=== PATIENT | female | born 1935 | race Caucasian/White ===

== ENCOUNTER → 2018-02-28 14:23 | Outpatient (CLI) | payer MEDICARE, SELFPAY ==
--- NOTE | 2018-02-28 14:25 | RAD_ITS ---
STUDY: X-RAY - LEFT SHOULDER REASON FOR EXAM: Chronic pain. TECHNIQUE: 3 view(s) of the shoulder. COMPARISON: None. FINDINGS: Normal glenohumeral articulation. Normal acromioclavicular joint. Normal acromion. Normal humeral head and visualized proximal humerus. The soft tissue structures are unremarkable. There is a hiatal hernia. RAD/Shoulder min 2 Views IMPRESSION: Unremarkable x-ray examination of the left shoulder. Electronically Signed: Jrodin Burk MD at 14:22 EDT Tel , Service support ,
== END ==
PROVIDERS: Family Provider Internal Medicine; PCP Internal Medicine; Referring Provider Orthopaedic Surgery; Visit Provider Orthopaedic Surgery
DX: M25.512 Pain in left shoulder (principal)
CPT/HCPCS: 73030

== ENCOUNTER → 2019-01-06 17:06 | Outpatient (CLI) | payer MEDICARE, SELFPAY ==
[2019-01-06 17:13] LABS: Bacteria 0 SEEN /hpf (None Seen); Mucous, Urine 0 SEEN /hpf (<or=2+); Red Blood Cells-Urine 0 SEEN /hpf (0-5)
[2019-01-06 18:12] LABS: AST(SGOT) 22 U/L (15-37); Alanine Aminotransfer ALT/SGPT 30 U/L (13-56); Albumin, Serum 3.5 g/dL (3.2-5.0); Alkaline Phosphatase 66 U/L (45-117); Anion Gap 8 (5-15); BUN 17 mg/dL (7-18); BUN/Creat Ratio 17.7 RATIO (10-20); Calcium,Total 9.1 mg/dL (8.5-10.1); Chloride 104 mmol/L (98-107); Creatinine, Serum 0.96 mg/dL (0.55-1.02); EST Glomerular Filtration Rate 59 mL/min (>60); Est Glom Filt Rate - Afr Amer 71 mL/min (>60); Globulin 3.4 g/dL (2.2-4.2); Glucose 86 mg/dL (74-106); Potassium 3.9 mmol/L (3.5-5.1); Protein, Total 6.9 g/dL (6.4-8.2); Sodium Level 137 mmol/L (136-145)
[2019-01-06 18:13] LABS: Color, Urine Yellow (Yellow); Glucose, Dipstick Normal (Normal); Ketone-Dipstick Negative (Negative); Leukocyte Esterase-Dipstick 100 /ul (Negative); Nitrite-Dipstick Negative (Negative); Occult Blood-Urine Negative /ul (Negative); Protein-Dipstick Negative (Negative); Urine Bilirubin Dipstick Negative (Negative); Urine Clarity Clear (Clear); Urine Urobilinogen Normal (Normal)
[2019-01-06 18:15] LABS: Squamous Epithelial Cells - UA 0-5 SEEN /hpf (5-10); White Blood Cells 5-10 SEEN /hpf (0-5)
== END ==
PROVIDERS: Family Provider Internal Medicine; PCP Internal Medicine; Referring Provider Internal Medicine; Visit Provider Internal Medicine
DX: I10 Essential (primary) hypertension (principal); E78.5 Hyperlipidemia, unspecified; R35.0 Frequency of micturition
CPT/HCPCS: 36415; 80053; 81001

== ENCOUNTER → 2019-02-10 15:06 | Outpatient (CLI) | payer MEDICARE, SELFPAY ==
[2019-02-10 11:03] VITALS: BMI 30.2
--- NOTE | 2019-02-10 15:20 | RAD_ITS ---
STUDY: X-RAY CHEST REASON FOR EXAM: Female, 83 years old. Shortness of breath. TECHNIQUE: AP portable chest. COMPARISON: May 16, 2016. FINDINGS: The lungs are clear and expanded. There is no demonstrated pleural abnormality. Large hiatal hernia. Normal size heart. Normal mediastinum and mendel. Normal visualized pulmonary arteries. Normal visualized aortic arch and descending thoracic aorta. Normal visualized thoracic spine. Normal visualized ribs, clavicles, and shoulders. Sternal wires are present. There is no demonstrated abnormality of the visualized soft tissue structures of the upper abdomen. RAD/Chest PA and Lateral IMPRESSION: No acute cardiopulmonary disease. Large hiatal hernia. Electronically Signed: Shahid Major MD at 0:17 EDT , Service support ,
[2019-02-10 16:38] LABS: Absolute Lymphocyte Count 1.63 X10^3/uL (0.83-4.51); Absolute Neutrophil Count 3.7 X10^3/uL (2.0-7.7); Basophil# 0.03 X10^3/uL; Basophil% 0.5 % (0-1); Eosinophil# 0.28 X10^3/uL; Eosinophils% 4.3 % (0-5); Hematocrit 37.6 % (37-47); Hemoglobin 12.1 g/dL (12.0-15.0); Lymphocyte # 1.63 X10^3/ul (4.0); Lymphocyte % 25.2 % (19-41); Mean Corp Hgb Conc 32.2 g/dL (32-36); Mean Corpuscular Hgb 31.7 pg (27.0-32.0); Mean Corpuscular Volume 98.4 fL (81-99); Mean Platelet Vol. 9.8 fl (6.2-12.0); Monocyte# 0.78 X10^3/uL; NRBC Flagged by Analyzer 0 % (0-5); Neutrophil # 3.74 X10^3/uL (2.7-7.7); Neutrophil % 57.7 % (47-70); Platelet Count 231 K/mm3 (150-450); RBC Distribution Width CV 13.3 % (11.6-14.6); RBC Distribution Width SD 48.3 fl (35.1-43.9); Red Blood Count 3.82 M/mm3 (4.2-5.4); White Blood Count 6.5 K/mm3 (4.4-11.0)
[2019-02-10 17:06] LABS: BNP,B-Type NATRIURETIC PEPTIDE 173.7 pg/mL (0-100)
== END ==
PROVIDERS: Family Provider Internal Medicine; PCP Internal Medicine; Referring Provider Physician Assistant Medical; Visit Provider Physician Assistant Medical
DX: I25.10 Atherosclerotic heart disease of native coronary artery without angina pectoris (principal); R53.83 Other fatigue; R06.09 Other forms of dyspnea
CPT/HCPCS: 36415; 71046; 83880; 85025

== ENCOUNTER → 2019-03-25 14:44 | Outpatient (CLI) | payer MEDICARE, SELFPAY ==
[2019-03-04 09:10] VITALS: BMI 29.2
[2019-03-24 15:43] VITALS: BMI 29.2
--- NOTE | 2019-03-25 14:45 | ECHOCS_ITS ---
Reason For Study: ASHD Procedure This was a 2D Doppler, Color Flow transthoracic echocardiogram. The study was technically difficult. Contrast injection was performed. Exam performed in department. Left Ventricle Normal LV size. Mild concentric left ventricular hypertrophy. Left ventricular systolic function is normal. The estimated ejection fraction is 65 %. No regional wall motion abnormalities noted. Right Ventricle Normal RV size. Normal systolic function. Atria The left atrium is mildly enlarged. Normal right atrium. Mitral Valve There is mild to moderate mitral annular calcification. Mild-Moderate (1-2+) eccentric mitral valve insufficiency. Tricuspid Valve Normal tricuspid valve. Mild (1+) tricuspid valve insufficiency. Pulmonary artery systolic pressure is 36 mmHg. Aortic Valve Trisinus/trileaflet aortic valve. Mild focal aortic valve calcification. Aortic sclerosis, no stenosis. Pulmonic Valve Normal pulmonic valve. Great Vessels Normal aortic root. The pulmonary artery is normal size. Normal inferior vena cava. Pericardium/Pleural No pericardial effusion. Medication 22 gauge I.V. with prn adaptor inserted into right arm. Diluted definity 2ml given slow IV push to enhance endocardial definition. MMode/2D Measurements & Calculations LVIDd: 3.4 cm IVSd: 1.2 cm LVOT diam: 2.0 cm LVIDs: 2.0 cm LVPWd: 1.2 cm FS: 41.5 % LVOT area: 3.2 cm2 Ao root diam: 3.0 cm LAV(MOD-bp): 54.1 ml LA A4 area: 20.1 cm2 LA dimension: 4.0 cm LAV(MOD-bp) Indexed: 32.7 ml/m2 LAV(MOD-sp2): 52.3 ml LAV(MOD-sp4): 53.7 ml RA A4 area: 14.8 cm2 Time Measurements MV dec time: 0.25 sec Doppler Measurements & Calculations MV E max rohan: 78.7 cm/sec Lat Peak E' Rohan: 6.6 cm/sec Med Peak E' Rohan: 5.6 cm/sec MV A max rohan: 116.5 cm/sec E/E' lat: 12.0 E/E' med: 14.2 MV E/A: 0.68 MV V2 max: 145.4 cm/sec MV P1/2t max rohan: 103.0 cm/sec Ao V2 max: 148.4 cm/sec MV max P.5 mmHg MV P1/2t: 119.1 msec Ao max P.8 mmHg MV V2 mean: 73.9 cm/sec MV dec slope: 253.4 cm/sec2 Ao V2 mean: 98.4 cm/sec MV mean P.6 mmHg Ao mean P.4 mmHg MV V2 VTI: 39.3 cm MVA(P1/2t): 1.8 cm2 Ao V2 VTI: 32.1 cm MVA(VTI): 1.4 cm2 RAIMUNDO(I,D): 1.7 cm2 RAIMUNDO(V,D): 1.7 cm2 LV V1 max: 78.7 cm/sec MR max rohan: 555.2 cm/sec SV(LVOT): 55.4 ml LV V1 max P.5 mmHg MR max P.3 mmHg LV V1 mean P.3 mmHg MR mean rohan: 404.2 cm/sec LV V1 mean: 53.8 cm/sec MR mean P.5 mmHg LV V1 VTI: 17.2 cm MR VTI: 178.2 cm PA V2 max: 85.7 cm/sec TR max rohan: 282.7 cm/sec TR max P.0 mmHg Interpretation Summary Normal LV size. Mild concentric left ventricular hypertrophy. Left ventricular systolic function is normal. The estimated ejection fraction is 65 %. The left atrium is mildly enlarged. Mild (1+) tricuspid valve insufficiency. Mild-Moderate (1-2+) eccentric mitral valve insufficiency. Ordering Physician: Jude Valencia Referring Physician: Arnoldo Lama Performed By: Gustavo Freeman RCS
== END ==
PROVIDERS: Family Provider Internal Medicine; PCP Internal Medicine; Referring Provider Internal Medicine Cardiovascular Disease; Visit Provider Internal Medicine Cardiovascular Disease
DX: I25.10 Atherosclerotic heart disease of native coronary artery without angina pectoris (principal)
CPT/HCPCS: 93306; Q9957; A4216; C8929

== ENCOUNTER → 2019-03-31 | Outpatient (CLI) | payer MEDICARE, SELFPAY ==
[2019-03-04 09:10] VITALS: BMI 29.2
[2019-03-24 15:43] VITALS: BMI 29.2
--- NOTE | 2019-03-31 12:31 | STEWCON_ITS ---
Reason For Study: WOLFE/SOB Stress Results Protocol: Dobutamine with definity Maximum Predicted HR: 136 bpm Target HR: 116 bpm % Maximum Predicted HR: 90 % DurationHeart Rate Stage (mm:ss) (bpm) BP Dose Comment BASELINE 49 129/40 1.5 CC DEFINITY STAGE 1 3:00 56 121/5810.001.5 CC DEFINITY STAGE 2 3:00 74 113/7120.00 STAGE 3 3:00 87 138/6230.00 STAGE 4 3:00 122 127/6840.000.25MG ATROPINE, 2 CC DEFINITY,BACK AND CHEST HEAVINESS RECOVERY 85 130/70 1 CC DEFINITY, FEELING BETTER Stress Duration: 12:00 mm:ss Maximum Stress HR: 122 bpm Baseline Echocardiogram Findings Stress Echo Wall motion Data Resting WM Intermediate WM Stress WM Interpretation Summary Dobutamine stress echocardiogram. Stress protocol: Resting EKG demonstrates sinus bradycardia with a rate of 48 bpm normal intervals are noted resting blood pressures 129/40 mmHg. Debridement was infused starting at 10 mcg/kg/min and increasing in 3- minute aliquots to a peak of 40 mcg/kg/min. 0.25 mg of atropine was also administered to achieve target heart rate. The maximum heart rate attained was 179 bpm which was 131% of maximum predicted heart rate the maximum workload was 1 metabolic equivalent. Patient maintained sinus rhythm throughout the recording. There were nonspecific ST-T wave changes noted with occasional paroxysms of atrial fibrillation noted. The resting blood pressure was 129/40 mmHg with a peak blood pressure 171/78 mmHg. No clinical angina was noted. Resting echocardiogram was performed with Definity enhancement demonstrating ejection fraction of approximately 55%. To be given was infused per usual protocol as noted above with peak ejection fractions noted of 70%. No regional wall motion of normalities were noted to suggest ischemia. Conclusion: Dobutamine stress EKG and echocardiogram with nonspecific ST changes noted and no echocardiographic evidence of ischemia present. Ordering Physician: Jude Valencia Referring Physician: Jude Valencia Performed By: Gustavo Freeman RCS
== END | disposition home or self-care (01) ==
LOC: CVS 12:29
PROVIDERS: Family Provider Internal Medicine; PCP Internal Medicine; Referring Provider Internal Medicine Cardiovascular Disease; Visit Provider Internal Medicine Cardiovascular Disease
DX: R06.09 Other forms of dyspnea (principal)
CPT/HCPCS: 93017; 93350; J7040; Q9957; A4216; C8928